=== PATIENT | female | born 1960 | race Hispanic/Latino ===

== ENCOUNTER 2022-01-14 10:18 | Outpatient (CLI) | payer OTHER, SELFPAY ==
--- NOTE | ~2022-01-14 | US_ITS ---
US soft tissue LE RT 01/14/2022 10:45 Indication: Right medial calf mass for 8 months Procedure: High-resolution Limited ultrasound of the right calf medially Comparison: No prior studies for comparison. Findings: There is normal heterogeneous soft tissues without focal solid or cystic mass in the area o f palpable concern. Impression: 1: Normal limited soft tissue ultrasound of the right calf medially corresponding to the area of palp able abnormality. No discrete solid or cystic mass. Reviewed, dictated and finalized at location A. Impression: 1: Normal limited soft tissue ultrasound of the right calf medially correspondi ng to the area of palpable abnormality. No discrete solid or cystic mass.
== END 2022-01-14 10:19 ==
LOC: MICIMG 10:19
PROVIDERS: PCP Family Medicine; Visit Provider Family Medicine
DX: R22.9 Localized swelling, mass and lump, unspecified (principal)
CPT/HCPCS: 76882